=== PATIENT | female | born 1975 | race American Indian/Alaskan Native ===

== ENCOUNTER 2019-12-06 19:12 | Emergency (ER) | payer MEDICAID ==
--- NOTE | 2019-12-06 20:21 | Emergency Department Report ---
ED Extremity Problem HPI - General Chief complaint: Extremity Injury, Upper Stated complaint: MIDDLE FINGER OF LT HAND SWOLLEN AND PAIN Time Seen by Provider: 12/06/19 20:05 Source: patient Mode of arrival: Ambulatory Limitations: No Limitations - History of Present Illness Initial comments: Patient is a 44-year-old female presents emergency room with complaints of left middle finger pain that began 2 days ago. She states that she noticed swelling and redness yesterday. Patient states that she does bite her nails. She denies any fall or injury. She denies any numbness or weakness. She does not report any fever, chills, nausea, vomiting, diarrhea, any other symptoms. She has a past medical history of hypertension, anxiety, depression. She states that she is currently on her menstrual cycle. She has an allergy to hydrocodone. - Related Data Previous Rx's Medication Instructions Recorded Last Taken Type Amoxicillin [Trimox CAP] 500 mg PO Q8H 10 Days #30 capsule 12/11/18 Unknown Rx Chlorhexidine Mouthwash [Peridex] 15 ml MM BID #1 bottle 12/11/18 Unknown Rx traMADoL [Ultram] 50 mg PO Q6HR PRN #12 tablet 12/11/18 Unknown Rx Acetaminophen [Tylenol] 650 mg PO Q8HR PRN #20 capsule 12/06/19 Unknown Rx Sulfamethoxazole/Trimethoprim 1 each PO BID 7 Days #14 tablet 12/06/19 Unknown Rx [Bactrim DS TAB] traMADoL [Ultram 50 MG tab] 50 mg PO Q6HR PRN #7 tablet 12/06/19 Unknown Rx Allergies Allergy/AdvReac Type Severity Reaction Status Date / Time hydrocodone [From [place]] Allergy Itching Verified 12/06/19 19:19 ED Review of Systems ROS: Stated complaint: MIDDLE FINGER OF LT HAND SWOLLEN AND PAIN Other details as noted in HPI Comment: All other systems reviewed and negative ED Past Medical Hx - Past Medical History Previous Medical History?: Yes Hx Hypertension: Yes Additional medical history: anxiety - Surgical History Past Surgical History?: Yes Additional Surgical History: Tonsil. 1/2 Thyroid removed. - Social History Smoking Status: Current Some Day Smoker Substance Use Type: Alcohol - Medications Home Medications: Home Medications Medication Instructions Recorded Confirmed Last Taken Type Amoxicillin [Trimox CAP] 500 mg PO Q8H 10 Days #30 capsule 12/11/18 Unknown Rx Chlorhexidine Mouthwash [Peridex] 15 ml MM BID #1 bottle 12/11/18 Unknown Rx traMADoL [Ultram] 50 mg PO Q6HR PRN #12 tablet 12/11/18 Unknown Rx Acetaminophen [Tylenol] 650 mg PO Q8HR PRN #20 capsule 12/06/19 Unknown Rx Sulfamethoxazole/Trimethoprim 1 each PO BID 7 Days #14 tablet 12/06/19 Unknown Rx [Bactrim DS TAB] traMADoL [Ultram 50 MG tab] 50 mg PO Q6HR PRN #7 tablet 12/06/19 Unknown Rx ED Physical Exam - General Limitations: No Limitations General appearance: alert, in no apparent distress - Head Head exam: Present: atraumatic, normocephalic - Eye Eye exam: Present: normal appearance - ENT ENT exam: Present: mucous membranes moist - Extremities Exam Extremities exam: Present: other (small amount of induration present surrounding the left middle finger nailbed and to the pulp of the left middle finger, there is no fluctuance, there is no drainage, no drainage is able to be manually expressed, there is no visualized pus underneath the skin, she has FROM of the left hand and digits, no pain with ROM, neurovascularly intact) - Neurological Exam Neurological exam: Present: alert, oriented X3 - Psychiatric Psychiatric exam: Present: normal affect, normal mood - Skin Skin exam: Present: warm, dry ED Course Vital Signs 12/06/19 12/06/19 19:17 20:33 Temperature 99.0 F 98.7 F Pulse Rate 84 82 Respiratory 18 18 Rate Blood Pressure 111/69 Blood Pressure 119/70 [Right] O2 Sat by Pulse 95 96 Oximetry ED Medical Decision Making - Medical Decision Making Patient is a 44-year-old female presents emergency room with complaints of left middle finger pain that began 2 days ago. She states that she noticed swelling and redness yesterday. Patient states that she does bite her nails. She denies any fall or injury. She denies any numbness or weakness. She does not report any fever, chills, nausea, vomiting, diarrhea, any other symptoms. She has a past medical history of hypertension, anxiety, depression. She states that she is currently on her menstrual cycle. She has an allergy to hydrocodone. Vitals are normal. On exam: small amount of induration present surrounding the left middle finger nailbed and to the pulp of the left middle finger, there is no fluctuance, there is no drainage, no drainage is able to be manually expressed, there is no visualized pus underneath the skin, she has FROM of the left hand and digits, no pain with ROM, neurovascularly intact. Examination consistent with cellulitis, it appears to be very early paronychia, there is no drainable abscess at this time, appears to be just indurated skin at this time. Will place patient on oral antibiotics and give her pain medications. Discussed with patient that she may have to have incision and drainage procedure if the antibiotics do not resolve the infection. Discussed strict return precautions with patient in detail and that she needed to have the area reexamined in 3 days. advised pt Please take medication as prescribed. Do not drive or operate heavy machinery while taking pain medication. Please follow-up with a primary care doctor in the next 3 days for reexamination. Return to the emergency room immediately for any new or worsening symptoms including but not limited to worsening swelling, worsening redness, fever, worsening pain, etc. If antibiotics do not take care of the infection, may have to have an incision and drainage procedure performed. Critical care attestation.: If time is entered above; I have spent that time in minutes in the direct care of this critically ill patient, excluding procedure time. ED Disposition Clinical Impression: Cellulitis Qualifiers: Site of cellulitis: extremity Site of cellulitis of extremity: upper extremity Laterality: left Qualified Code(s): L03.114 - Cellulitis of left upper limb Disposition: DC-01 TO HOME OR SELFCARE Is pt being admited?: No Does the pt Need Aspirin: No Condition: Stable Instructions: Paronychia (ED), Cellulitis (ED) Additional Instructions: Please take medication as prescribed. Do not drive or operate heavy machinery while taking pain medication. Please follow-up with a primary care doctor in the next 3 days for reexamination. Return to the emergency room immediately for any new or worsening symptoms including but not limited to worsening swelling, worsening redness, fever, worsening pain, etc. If antibiotics do not take care of the infection, may have to have an incision and drainage procedure performed. Prescriptions: Sulfamethoxazole/Trimethoprim [Bactrim DS TAB] 1 each PO BID 7 Days #14 tablet Acetaminophen [Tylenol] 650 mg PO Q8HR PRN #20 capsule PRN Reason: Pain, Moderate (4-6) traMADoL [Ultram 50 MG tab] 50 mg PO Q6HR PRN #7 tablet PRN Reason: Pain , Severe (7-10) Referrals: TRESA CUNHA MD [Primary Care Provider] - 2-3 Days Time of Disposition: 20:21 Print Language: ISRAELI
[2019-12-06 21:13] VITALS: BP 119/70
== END 2019-12-06 20:32 | disposition home or self-care (01) ==
LOC: ED 19:12
DX: L03.114 Cellulitis of left upper limb (principal); I10 Essential (primary) hypertension; F41.9 Anxiety disorder, unspecified; F17.200 Nicotine dependence, unspecified, uncomplicated; Z98.890 Other specified postprocedural states; Z88.8 Allergy status to other drugs, medicaments and biological substances; Z79.899 Other long term (current) drug therapy
CPT/HCPCS: 99282

== ENCOUNTER 2020-06-18 07:29 | Emergency (ER) | payer MEDICAID ==
[2020-06-18] MEDS ORDERED: dexAMETHasone 20 MG/5 ML VIAL IV ONE (07:58)
[2020-06-18] MEDS ORDERED: MECLIZINE 25 MG TAB PO ONE (07:58)
--- NOTE | 2020-06-18 08:00 | Emergency Department Report ---
ED General Adult HPI - General Chief complaint: Dyspnea/Respdistress Stated complaint: DIZZY/FEVER PUI?: Yes Time Seen by Provider: 06/18/20 07:33 Source: patient, EMS ( EMS documentation not available at time of chart di ctation ), RN notes reviewed Mode of arrival: Stretcher Limitations: Physical Limitation - History of Present Illness Initial comments: The patient was evaluated in the emergency department for symptoms described in the history of present illness. He/she was evaluated in the context of the global COVID-19 pandemic, which necessitated consideration that the patient might be at risk for infection with the virus that causes COVID-19. Institutional protocols and algorithms that pertain to the evaluation of patients at risk for COVID-19 are in a state of rapid change based on information released by regulatory bodies including the CDC and federal and state organizations. These policies and algorithms were followed during the patient's care in the emergency department. Please note that these policies, procedures and recommendations changed on a rapid basis. During the entire history and physical examination, I had on complete personal protective equipment. This is a 45-year-old female. She is not known to myself previously. She states that she is not , and has not delivered or given within the past 6 weeks. She has a history of obesity, hypertension, high cholesterol, and anxiety. She is brought to the hospital by emergency medical services. She presents to the ER today with a complaint of painless dizziness, and inability to walk. She states that she woke up feeling like this. She states that last night, when she got home, she saw "some gummy worms on the counter", and ate them. She is not sure what is in the aforementioned gummy worms, and thinks that she may have accidentally overdosed on something unintentionally. Last night, while going to bed, she states that she had no physical pain, and felt like she was walking normally. This morning, she describes a sensation of persistent room spinning, which does not radiate anywhere, which does not have exacerbating or relieving factors. She states that she feels unsteady on her feet, and feels like she has difficulty walking. She denies headache, neck pain, chest pain, abdominal pain. She has cough and shortness of breath. She has no urinary symptoms. In the ambulance, she is reported to have had a fever. The emergency room, the patient has a low-grade temperature. The patient believes that she has been mostly self isolating. However, she goes out occasionally. Intermittent mask compliance. Also has a daughter and granddaughter at home, uncertain as to how old effectively they are socially distancing and isolating. There are no urinary symptoms. -: unknown (The patient woke up with symptoms) Severity scale (0 -10): 3 Consistency: constant Improves with: rest Worsens with: other (Dizziness worsens when the patient attempts to ambulate) - Related Data Previous Rx's Medication Instructions Recorded Last Taken Type Chlorhexidine Mouthwash [Peridex] 15 ml MM BID #1 bottle 12/11/18 Unknown Rx Acetaminophen [Tylenol] 650 mg PO Q8HR PRN #20 capsule 12/06/19 Unknown Rx Acetaminophen [Non-Aspirin Extra 500 mg PO Q6HR PRN #30 tablet 06/18/20 Unknown Rx Strength] Meclizine [Antivert] 25 mg PO TID PRN #30 tablet 06/18/20 Unknown Rx Ondansetron [Zofran Odt] 4 mg PO Q8HR PRN #20 tab.rapdis 06/18/20 Unknown Rx Allergies Allergy/AdvReac Type Severity Reaction Status Date / Time No Known Allergies Allergy Unverified 02/08/20 08:47 ED Review of Systems ROS: Stated complaint: DIZZY/FEVER Other details as noted in HPI Constitutional: fever, malaise, weakness Eyes: denies: eye pain, eye discharge, vision change ENT: congestion, other (No tinnitus. Positive vertigo.). denies: ear pain, throat pain, dental pain, hearing loss, epistaxis Respiratory: cough Cardiovascular: denies: chest pain, syncope Gastrointestinal: denies: abdominal pain, nausea, vomiting, diarrhea Genitourinary: denies: dysuria Musculoskeletal: arthralgia, myalgia Skin: denies: lesions Neurological: weakness. denies: headache Psychiatric: anxiety Hematological/Lymphatic: denies: easy bleeding ED Past Medical Hx - Past Medical History Previous Medical History?: Yes Hx Hypertension: Yes Additional medical history: anxiety / ptsd/ tendinitis - Surgical History Past Surgical History?: Yes Additional Surgical History: Tonsil. 1/2 Thyroid removed. - Social History Smoking Status: Never Smoker - Medications Home Medications: Home Medications Medication Instructions Recorded Confirmed Last Taken Type Chlorhexidine Mouthwash [Peridex] 15 ml MM BID #1 bottle 12/11/18 Unknown Rx Acetaminophen [Tylenol] 650 mg PO Q8HR PRN #20 capsule 12/06/19 Unknown Rx Acetaminophen [Non-Aspirin Extra 500 mg PO Q6HR PRN #30 tablet 06/18/20 Unknown Rx Strength] Meclizine [Antivert] 25 mg PO TID PRN #30 tablet 06/18/20 Unknown Rx Ondansetron [Zofran Odt] 4 mg PO Q8HR PRN #20 tab.rapdis 06/18/20 Unknown Rx ED Physical Exam - General Limitations: Physical Limitation General appearance: alert, anxious, in distress, obese - Head Head exam: Present: atraumatic, normocephalic - Eye Eye exam: Present: normal appearance, PERRL, EOMI. Absent: nystagmus - ENT ENT exam: Present: normal exam, normal orophraynx, mucous membranes moist, normal external ear exam, other (There is no mastoid tenderness. The helix is nontender) - Neck Neck exam: Present: normal inspection, full ROM. Absent: tenderness, meningismus - Respiratory Respiratory exam: Present: normal lung sounds bilaterally. Absent: respiratory distress, wheezes, rales, rhonchi, stridor, decreased breath sounds - Cardiovascular Cardiovascular Exam: Present: normal rhythm, tachycardia, normal heart sounds. Absent: bradycardia, systolic murmur, diastolic murmur, rubs, gallop - GI/Abdominal GI/Abdominal exam: Present: soft. Absent: distended, tenderness, guarding, rebound, rigid, pulsatile mass - Extremities Exam Extremities exam: Present: normal inspection, full ROM, other (2+ pulses noted in the bilateral upper and lower extremities. There is no palpable cord. negative Homans sign. Muscular compartments are soft. The pelvis is stable.). Absent: pedal edema, calf tenderness - Back Exam Back exam: Present: normal inspection, full ROM. Absent: tenderness, CVA tenderness (R), CVA tenderness (L), paraspinal tenderness, vertebral tenderness - Neurological Exam Neurological exam: Present: alert, other (There is 4 out of 5 strength in 4 extremities. Sensation is intact to light touch in 4 extremities. There is no facial droop. The tongue is midline. Extraocular movements are intact bilaterally. Patient able to lift right leg over her left mishra, and move superiorly and inferiorly, but is not able to move up to the knee secondary to generalized weakness. Patient able to lift left leg over right mishra, and move proximally and distally over a short distance, but again, secondary to global weakness, not able to move up to the knee. Intention tremor noted in the bilateral upper extremities. No significant past-pointing noted in the left upper extremity. Right upper extremity has IV, pulse ox, and blood pressure cuff, therefore, patient has difficulty moving it.) - Psychiatric Psychiatric exam: Present: anxious - Skin Skin exam: Present: warm, dry, intact, normal color. Absent: rash ED Course Vital Signs 06/18/20 06/18/20 06/18/20 07:41 07:45 07:53 Temperature 99.5 F Pulse Rate 109 H 109 H 109 H Respiratory 13 16 18 Rate Blood Pressure 117/80 117/88 Blood Pressure 117/88 [Right] O2 Sat by Pulse 96 93 96 Oximetry 06/18/20 06/18/20 06/18/20 08:00 08:01 08:15 Temperature Pulse Rate 101 H 106 H Respiratory 20 18 23 Rate Blood Pressure 112/68 112/68 Blood Pressure [Right] O2 Sat by Pulse 94 100 88 Oximetry 06/18/20 06/18/20 06/18/20 08:31 08:45 09:04 Temperature Pulse Rate 105 H 119 H Respiratory 15 30 H Rate Blood Pressure 112/68 112/68 112/68 Blood Pressure [Right] O2 Sat by Pulse 96 98 Oximetry 06/18/20 06/18/20 06/18/20 09:15 09:31 09:45 Temperature Pulse Rate Respiratory 27 H 20 18 Rate Blood Pressure 112/68 112/68 112/68 Blood Pressure [Right] O2 Sat by Pulse 95 95 93 Oximetry 06/18/20 06/18/20 06/18/20 10:01 10:15 10:31 Temperature Pulse Rate Respiratory 20 15 19 Rate Blood Pressure 112/68 112/68 112/68 Blood Pressure [Right] O2 Sat by Pulse 95 97 96 Oximetry 06/18/20 06/18/20 06/18/20 10:55 10:56 11:00 Temperature Pulse Rate 100 H 95 H Respiratory 14 12 19 Rate Blood Pressure 112/68 115/63 Blood Pressure [Right] O2 Sat by Pulse 96 94 Oximetry 11/14/20 11/14/20 11:15 11:31 Temperature Pulse Rate 94 H 94 H Respiratory 18 18 Rate Blood Pressure 115/63 115/63 Blood Pressure [Right] O2 Sat by Pulse 96 95 Oximetry - Reevaluation(s) Reevaluation #1: 06/18/20 08:59 Differential diagnosis, including but not limited to: COVID-19, labyrinthitis, intracranial lesion/stroke, pneumonia, urinary tract infection, deconditioning, thyroid derangement, peripheral vertigo Inadvertent toxic ingestion Assessment and plan: 45-year-old female presenting during the midst of the Covid pandemic, with a number of nonspecific symptoms, including cough, feeling off balance, fever, weakness, vertigo. Patient woke up with symptoms, and is therefore not a TPA candidate. Her examination at this time is not suggestive or consistent with a large vessel occlusion. Suspect global process, most likely viral syndrome. Check basic labs, treat symptoms, obtain x-ray of the chest, noncontrast CT scan of the brain, urinalysis, EKG, serum toxicology, and reassess. During my evaluation, patient hypoxic on room air, 91, 92%, therefore, required initiation of supplemental oxygen, and empiric steroid therapy. Maintain patient on contact precautions. We anticipate admission once initial diagnostics have resulted. Have discussed this with the patient who verbalized understanding, and who is amenable to this plan of care. 06/18/20 11:04 Reassessed. Patient feels much improved. Able to walk with a steady gait. X- ray of the chest, CT scan of the brain, objective laboratory testing fairly unremarkable. Elevated lactic acid less than 4, tachycardia improved, heart rate 105 bpm. IV fluids ordered, acetaminophen ordered. Anticipate discharge once tachycardia has resolved. Repeat NIH score is 0. Find stroke/CVA to be very unlikely, given history of cough, fever, and current Covid pandemic. Reevaluation #2: 06/18/20 11:53 Tachycardia resolved. Heart rate 95 bpm. Patient does not require supplemental oxygen at this time. She is able to walk around the emergency department, with a steady gait, and does not desaturate. GCS 15, NIH score of 0 at this time. Suitable for outpatient management. Likely diagnosis is viral infection/COVID- 19. Note toxicologic abnormalities noted on serum studies. ED Medical Decision Making - Lab Data Result diagrams: 06/18/20 08:06 06/18/20 08:06 Vital Signs 06/18/20 06/18/20 07:53 08:01 Temperature 99.5 F Pulse Rate 109 H Respiratory 18 18 Rate Blood Pressure 117/88 Blood Pressure 117/88 [Right] O2 Sat by Pulse 96 100 Oximetry Lab Results 06/18/20 06/18/20 06/18/20 Range/Units 08:06 08:06 08:06 WBC 8.4 (4.5-11.0) K/mm3 RBC 4.07 (3.65-5.03) M/mm3 Hgb 13.6 (10.1-14.3) gm/dl Hct 40.5 (30.3-42.9) % MCV 100 H (79-97) fl MCH 33 H (28-32) pg MCHC 34 (30-34) % RDW 13.9 (13.2-15.2) % Plt Count 266 (140-440) K/mm3 Lymph % (Auto) 23.6 (13.4-35.0) % [place] % (Auto) 7.9 H (0.0-7.3) % Eos % (Auto) 2.0 (0.0-4.3) % Baso % (Auto) 0.7 (0.0-1.8) % Lymph # (Auto) 2.0 (1.2-5.4) K/mm3 [place] # (Auto) 0.7 (0.0-0.8) K/mm3 Eos # (Auto) 0.2 (0.0-0.4) K/mm3 Baso # (Auto) 0.1 (0.0-0.1) K/mm3 Seg Neutrophils % 65.8 (40.0-70.0) % Seg Neutrophils # 5.5 (1.8-7.7) K/mm3 D-Dimer 220.33 (0-234) ng/mlDDU Lactic Acid 2.80 H* (0.7-2.0) mmol/L Magnesium (1.7-2.3) mg/dL Total Creatine Kinase (30-135) units/L Plasma/Serum Alcohol (0-0.07) % 06/18/20 06/18/20 Range/Units 08:06 08:06 WBC (4.5-11.0) K/mm3 RBC (3.65-5.03) M/mm3 Hgb (10.1-14.3) gm/dl Hct (30.3-42.9) % MCV (79-97) fl MCH (28-32) pg MCHC (30-34) % RDW (13.2-15.2) % Plt Count (140-440) K/mm3 Lymph % (Auto) (13.4-35.0) % [place] % (Auto) (0.0-7.3) % Eos % (Auto) (0.0-4.3) % Baso % (Auto) (0.0-1.8) % Lymph # (Auto) (1.2-5.4) K/mm3 [place] # (Auto) (0.0-0.8) K/mm3 Eos # (Auto) (0.0-0.4) K/mm3 Baso # (Auto) (0.0-0.1) K/mm3 Seg Neutrophils % (40.0-70.0) % Seg Neutrophils # (1.8-7.7) K/mm3 D-Dimer (0-234) ng/mlDDU Lactic Acid (0.7-2.0) mmol/L Magnesium 2.40 H (1.7-2.3) mg/dL Total Creatine Kinase 105 (30-135) units/L Plasma/Serum Alcohol < 0.01 (0-0.07) % - EKG Data -: EKG Interpreted by Vt EKG shows normal: sinus rhythm Rate: tachycardia - EKG Data When compared to previous EKG there are: previous EKG unavailable 06/18/20 09:02 Sinus rhythm, tachycardia, 105 bpm, normal axis, QTC is prolonged, poor R wave progression, and motion artifact. This EKG is abnormal. This EKG is not a [facility]. There is no prior for comparison. - Radiology Data Radiology results: pending, report reviewed, image reviewed XR chest 1V ap INDICATION / CLINICAL INFORMATION: coufg fever covoid symotoms COMPARISON: None available. FINDINGS: SUPPORT DEVICES: None. HEART / MEDIASTINUM: No significant abnormality. LUNGS / PLEURA: Lungs are clear. Costophrenic sulci are sharp. No pneumothorax. ADDITIONAL FINDINGS: No significant additional findings. IMPRESSION: 1. No acute findings. Signer Name: Felix Garza MD Signed: 06/18/2020 9:18 AM Workstation Name: [id number] CT head/brain wo con INDICATION: Dizziness. TECHNIQUE: Routine CT head. All CT scans at this location are performed using CT dose reduction for ALARA by means of automated exposure control. COMPARISON: None. FINDINGS: Intracranial: Maurer-white matter differentiation is maintained. No intracranial hemorrhage. No extra axial collection.. No hydrocephalus. No herniation. Sinuses: Paranasal sinuses and mastoid air cells are essentially clear. Orbits: Globes are intact. Calvarium: No acute fracture. IMPRESSION: 1. No acute intracranial abnormality. Signer Name: Felix Garza MD Signed: 06/18/2020 8:14 AM Workstation Name: [id number] Critical care attestation.: If time is entered above; I have spent that time in minutes in the direct care of this critically ill patient, excluding procedure time. ED Disposition Clinical Impression: Suspected 2019 novel coronavirus infection, Dizzy Disposition: DC- TO HOME OR SELFCARE Is pt being admited?: No Does the pt Need Aspirin: No Condition: Stable Instructions: COVID-19 Additional Instructions: As we discussed, the patient most likely has novel coronavirus/COVID. the symptoms of COVID will typically persist 10 to 14 days. There is no cure at this time for COVID. Please make certain to self isolate and self quarantine, follow-up with an outpatient primary care doctor within the next 3 to 5 days, wash hands with soap and water frequently, thoroughly and often, patient may take the prescribed medications as needed and directed. Advance diet and drink plenty of fluids as tolerated. Avoid interactions with the very elderly, very young, and those with chronic medical conditions. Return to the emergency room right away with new pain, worsening pain, migration of pain, projectile vomiting, change in mental status, confusion, inability to tolerate liquid feeds, new, worsened or different symptoms not present on the initial emergency room evaluation. Referrals: [facility] [Other] - 3-5 Days SHERYL WATERMAN MD [Staff Physician] - 3-5 Days Forms: Work/School Release Form(ED) - Assessment Assessment Interval: Baseline - Level of Consciousness 1a. Level of Consciousness: alert/keenly responsive - LOC Questions 1b. LOC Questions: answers both correctly - LOC Command 1c. LOC Commands: performs tasks correctly - Best Gaze 2. Best Gaze: normal - Visual 3. Visual: no visual loss - Facial Palsy 4. Facial Palsy: normal symmetrical movement - Motor Arm 5a. Motor Arm Left: drift 5b. Motor Arm Right: drift - Motor Leg 6a. Motor Leg Left: drift 6b. Motor Leg Right: drift - Limb Ataxia 7. Limb Ataxia: absent - Sensory 8. Sensory: normal - Best Language 9. Best Language: no aphasia - Dysarthria 10. Dysarthria: normal - Extinction and Inattention 11. Extinction/Inattention: no abnormality - Scoring Total Score: 4 Stroke Severity: Minor Stroke
[2020-06-18 08:39] LABS: Basophils # (Auto) 0.1 K/mm3 (0.0-0.1); Basophils % (Auto) 0.7 % (0.0-1.8); Eosinophils # (Auto) 0.2 K/mm3 (0.0-0.4); Hematocrit 40.5 % (30.3-42.9); Hemoglobin 13.6 gm/dl (10.1-14.3); Lymphocytes % (Auto) 23.6 % (13.4-35.0); Mean Corpuscular HGB Conc 34 % (30-34); Mean Corpuscular Volume 100 fl (79-97); Monocytes # (Auto) 0.7 K/mm3 (0.0-0.8); Monocytes % (Auto) 7.9 % (0.0-7.3); Platelet Count 266 K/mm3 (140-440); Red Blood Count 4.07 M/mm3 (3.65-5.03); Red Cell Distribution Width 13.9 % (13.2-15.2)
[2020-06-18 09:04] LABS: C-Reactive Protein 0.3 mg/dL (0.00-1.30)
[2020-06-18 09:05] LABS: Albumin 4.1 g/dL (3.9-5); BUN/Creatinine Ratio 16; Blood Urea Nitrogen 16 mg/dL (7-17); Calcium 9.5 mg/dL (8.4-10.2); Hemolysis Index 14
[2020-06-18 09:06] LABS: Alanine Aminotransferase < 5 units/L (7-56)
--- NOTE | 2020-06-18 09:18 | Cat Scan Report ---
CT head/brain wo con INDICATION: Dizziness. TECHNIQUE: Routine CT head. All CT scans at this location are performed using CT dose reduction for A LEONORA by means of automated exposure control. COMPARISON: None. FINDINGS: Intracranial: Maurer-white matter differentiation is maintained. No intracranial hemorrhage. No extra a xial collection.. No hydrocephalus. No herniation. Sinuses: Paranasal sinuses and mastoid air cells are essentially clear. Orbits: Globes are intact. Calvarium: No acute fracture. IMPRESSION: 1. No acute intracranial abnormality. Signer Name: Felix Garza MD Signed: 06/18/2020 9:14 AM Workstation Name: [id number]
[2020-06-18 09:24] LABS: HCG,Quantitative 0.584 mIU/mL (0-4)
[2020-06-18 09:38] LABS: Bilirubin,Urine NEG (Negative); Blood,Urine NEG (Negative); Color,Urine Yellow (Yellow); Mucus,Urine FEW /HPF; Protein,Urine <15 mg/dL mg/dL (Negative); Urobilinogen,Urine < 2.0 mg/dL (<2.0)
[2020-06-18] MEDS ORDERED: ACETAMINOPHEN 500 MG TAB PO ONE (09:44)
--- NOTE | 2020-06-18 10:23 | XRay Report ---
XR chest 1V ap INDICATION / CLINICAL INFORMATION: coufg fever covoid symotoms COMPARISON: None available. FINDINGS: SUPPORT DEVICES: None. HEART / MEDIASTINUM: No significant abnormality. LUNGS / PLEURA: Lungs are clear. Costophrenic sulci are sharp. No pneumothorax. ADDITIONAL FINDINGS: No significant additional findings. IMPRESSION: 1. No acute findings. Signer Name: Felix Garza MD Signed: 06/18/2020 10:18 AM Workstation Name: [id number]
[2020-06-18] MEDS ORDERED: KETOROLAC 30 MG/1 ML INJ IV ONE (10:49)
[2020-06-18] MEDS ORDERED: SODIUM CHLORIDE 0.9% 1000 ML 1,000 ML IV ONE (10:49)
[2020-06-18 11:16] VITALS: BP 115/63
== END 2020-06-18 12:26 | disposition home or self-care (01) ==
LOC: ED 07:29
DX: R42 Dizziness and giddiness (principal); R05 Cough; Z20.828 Contact with and (suspected) exposure to other viral communicable diseases; I10 Essential (primary) hypertension; F43.11 Post-traumatic stress disorder, acute; Z90.79 Acquired absence of other genital organ(s); Z79.899 Other long term (current) drug therapy
CPT/HCPCS: 36415; 70450; 71045; 80053; 81001; 82140; 82550; 82728; 82947; 83615; 83735; 84145; 84443; 84484; 84702; 85025; 85379; 86140; 87086; 93005; 96361; 96374; 96375; 99285; J1100; J1885; J7030; 80320; G0480

== ENCOUNTER 2020-08-24 09:52 | Emergency (ER) | payer MEDICAID ==
[2020-08-24] MEDS ORDERED: ACETAMINOPHEN 325 MG TAB ONE (09:59)
[2020-08-24 10:00] VITALS: BP 139/89
[2020-08-24] MEDS ORDERED: ACETAMINOPHEN 325 MG TAB PO ONE (10:01)
--- NOTE | 2020-08-24 10:01 | Event Note ---
ED Screening Note ED Screening Note: cough fever sob and cp pmh htn obese asthma This initial assessment/diagnostic orders/clinical plan/treatment(s) is/are subject to change based on patients health status, clinical progression and re- assessment by fellow clinical providers in the ED. Further treatment and workup at subsequent clinical providers discretion. Patient/guardian urged not to elope from the ED as their condition may be serious if not clinically assessed and managed. Initial orders include: amandeep joaquin
[2020-08-24 10:26] LABS: Basophils # (Auto) 0.1 K/mm3 (0.0-0.1); Basophils % (Auto) 0.7 % (0.0-1.8); Eosinophils % (Auto) 0.2 % (0.0-4.3); Hematocrit 39.4 % (30.3-42.9); Hemoglobin 13.5 gm/dl (10.1-14.3); Lymphocytes % (Auto) 13.1 % (13.4-35.0); Mean Corpuscular HGB Conc 34 % (30-34); Mean Corpuscular Volume 98 fl (79-97); Monocytes # (Auto) 0.6 K/mm3 (0.0-0.8); Monocytes % (Auto) 7.3 % (0.0-7.3); Platelet Count 202 K/mm3 (140-440); Red Blood Count 4.02 M/mm3 (3.65-5.03); Red Cell Distribution Width 13.6 % (13.2-15.2)
[2020-08-24 10:48] LABS: Alanine Aminotransferase 33 units/L (7-56); Albumin 4.1 g/dL (3.9-5); BUN/Creatinine Ratio 8; Blood Urea Nitrogen 7 mg/dL (7-17); Calcium 8.4 mg/dL (8.4-10.2); Hemolysis Index 2
[2020-08-24] MEDS ORDERED: POTASSIUM CHLORIDE ER 20 MEQ TAB PO ONE (13:13)
--- NOTE | 2020-08-24 13:15 | Emergency Department Report ---
ED General Adult HPI - General Chief complaint: Upper Respiratory Infection Stated complaint: COLD/FLU SYMPTOMS PUI?: Yes Time Seen by Provider: 08/24/20 10:01 Source: patient, RN notes reviewed, old records reviewed Mode of arrival: Ambulatory Limitations: No Limitations - History of Present Illness Initial comments: The patient was evaluated in the emergency department for symptoms described in the history of present illness. He/she was evaluated in the context of the global COVID-19 pandemic, which necessitated consideration that the patient might be at risk for infection with the virus that causes COVID-19. Instituti onal protocols and algorithms that pertain to the evaluation of patients at risk for COVID-19 are in a state of rapid change based on information released by regulatory bodies including the CDC and federal and state organizations. These policies and algorithms were followed during the patient's care in the emergency department. Please note that these policies, procedures and recommendations changed on a rapid basis. During the entire history and physical examination, I had a complete personal protective equipment. Patient is a 45-year-old female. She has a history of obesity. She states that she is not , does not take oral contraceptives, and has not delivered to giving within the past 6 weeks. She presents to the ER with a complaint of cough, chest wall pain, body aches, malaise and fatigue. Denies travel, surgery, posterior leg pain/swelling, oral contraceptive use. Chest wall pain is intermittent, increases with palpation and does not radiate to the back, arms or neck. No recent aspirin consumption. No family or personal history of DVT or pulmonary embolism that she is aware of. No loss of taste or smell. No urinary symptoms. -: Gradual, days(s) Location: chest (Anterior chest wall), back, left, right, upper extremity, lower extremity Severity scale (0 -10): 10 Quality: stabbing Consistency: intermittent Improves with: rest Worsens with: movement, other (Palpation of chest wall) - Related Data Previous Rx's Medication Instructions Recorded Last Taken Type Chlorhexidine Mouthwash [Peridex] 15 ml MM BID #1 bottle 12/11/18 Unknown Rx Acetaminophen [Tylenol] 650 mg PO Q8HR PRN #20 capsule 12/06/19 Unknown Rx Acetaminophen [Non-Aspirin Extra 500 mg PO Q6HR PRN #30 tablet 06/18/20 Unknown Rx Strength] Meclizine [Antivert] 25 mg PO TID PRN #30 tablet 06/18/20 Unknown Rx Ondansetron [Zofran Odt] 4 mg PO Q8HR PRN #20 tab.rapdis 06/18/20 Unknown Rx Acetaminophen [Non-Aspirin Extra 500 mg PO Q6HR PRN #30 tablet 08/24/20 Unknown Rx Strength] Albuterol Sulfate [Proair 90 mcg IH Q4HR PRN #2 aer.pow.ba 08/24/20 Unknown Rx Respiclick] Ibuprofen [Motrin] 600 mg PO Q8H PRN #30 tablet 08/24/20 Unknown Rx Potassium Chloride [K-Dur] 20 meq PO QDAY #14 tablet 08/24/20 Unknown Rx Allergies Allergy/AdvReac Type Severity Reaction Status Date / Time No Known Allergies Allergy Verified 08/24/20 09:55 ED Review of Systems ROS: Stated complaint: COLD/FLU SYMPTOMS Other details as noted in HPI Constitutional: chills, fever, malaise, weakness Eyes: denies: vision change ENT: congestion Respiratory: cough Cardiovascular: chest pain (Chest wall pain) Gastrointestinal: denies: nausea, vomiting, diarrhea Genitourinary: denies: dysuria Musculoskeletal: back pain, arthralgia, myalgia Neurological: weakness Hematological/Lymphatic: denies: easy bleeding ED Past Medical Hx - Past Medical History Hx Hypertension: Yes Additional medical history: anxiety / ptsd/ tendinitis - Surgical History Additional Surgical History: Tonsil. 1/2 Thyroid removed. - Social History Smoking Status: Current Some Day Smoker Substance Use Type: None - Medications Home Medications: Home Medications Medication Instructions Recorded Confirmed Last Taken Type Chlorhexidine Mouthwash [Peridex] 15 ml MM BID #1 bottle 12/11/18 Unknown Rx Acetaminophen [Tylenol] 650 mg PO Q8HR PRN #20 capsule 12/06/19 Unknown Rx Acetaminophen [Non-Aspirin Extra 500 mg PO Q6HR PRN #30 tablet 06/18/20 Unknown Rx Strength] Meclizine [Antivert] 25 mg PO TID PRN #30 tablet 06/18/20 Unknown Rx Ondansetron [Zofran Odt] 4 mg PO Q8HR PRN #20 tab.rapdis 06/18/20 Unknown Rx Acetaminophen [Non-Aspirin Extra 500 mg PO Q6HR PRN #30 tablet 08/24/20 Unknown Rx Strength] Albuterol Sulfate [Proair 90 mcg IH Q4HR PRN #2 aer.pow.ba 08/24/20 Unknown Rx Respiclick] Ibuprofen [Motrin] 600 mg PO Q8H PRN #30 tablet 08/24/20 Unknown Rx Potassium Chloride [K-Dur] 20 meq PO QDAY #14 tablet 08/24/20 Unknown Rx ED Physical Exam - General Limitations: No Limitations General appearance: alert, obese - Head Head exam: Present: atraumatic, normocephalic - Eye Eye exam: Present: normal appearance, EOMI. Absent: nystagmus - ENT ENT exam: Present: normal exam, normal orophraynx, mucous membranes moist, normal external ear exam - Neck Neck exam: Present: normal inspection, full ROM. Absent: tenderness, meningismus - Respiratory Respiratory exam: Present: normal lung sounds bilaterally, chest wall tenderness. Absent: respiratory distress, wheezes, rales, rhonchi, stridor - Cardiovascular Cardiovascular Exam: Present: normal rhythm, tachycardia, normal heart sounds. Absent: bradycardia, irregular rhythm, systolic murmur, diastolic murmur, rubs, gallop - GI/Abdominal GI/Abdominal exam: Present: soft. Absent: distended, tenderness, guarding, rebound, rigid, pulsatile mass - Extremities Exam Extremities exam: Present: normal inspection, full ROM, other (2+ pulses noted in the bilateral upper and lower extremities. There is no palpable cord. negative Homans sign. Muscular compartments are soft. The pelvis is stable.). Absent: pedal edema, calf tenderness - Back Exam Back exam: Present: normal inspection, full ROM. Absent: tenderness, CVA tenderness (R), CVA tenderness (L), paraspinal tenderness, vertebral tenderness - Neurological Exam Neurological exam: Present: alert, oriented X3, normal gait, other (No facial droop. Tongue midline. Extraocular movements intact bilaterally. Facial sensation intact to light touch in V1, V2, V3 distribution bilaterally. 5 and a 5 strength in 4 extremities. Sensation intact to light touch in 4 extremities.). Absent: motor sensory deficit - Psychiatric Psychiatric exam: Present: normal affect, normal mood - Skin Skin exam: Present: warm, dry, intact, normal color. Absent: rash ED Course Vital Signs 08/24/20 08/24/20 09:58 14:25 Temperature 102.3 F H Pulse Rate 111 H Respiratory 18 18 Rate Blood Pressure 139/89 O2 Sat by Pulse 94 100 Oximetry ED Medical Decision Making - Lab Data Result diagrams: 08/24/20 10:12 08/24/20 10:12 Vital Signs 08/24/20 08/24/20 09:58 14:25 Temperature 102.3 F H Pulse Rate 111 H Respiratory 18 18 Rate Blood Pressure 139/89 O2 Sat by Pulse 94 100 Oximetry Lab Results 08/24/20 08/24/20 08/24/20 Range/Units 10:12 10:12 10:12 WBC 7.9 (4.5-11.0) K/mm3 RBC 4.02 (3.65-5.03) M/mm3 Hgb 13.5 (10.1-14.3) gm/dl Hct 39.4 (30.3-42.9) % MCV 98 H (79-97) fl MCH 34 H (28-32) pg MCHC 34 (30-34) % RDW 13.6 (13.2-15.2) % Plt Count 202 (140-440) K/mm3 Lymph % (Auto) 13.1 L (13.4-35.0) % Hill % (Auto) 7.3 (0.0-7.3) % Eos % (Auto) 0.2 (0.0-4.3) % Baso % (Auto) 0.7 (0.0-1.8) % Lymph # (Auto) 1.0 L (1.2-5.4) K/mm3 Hill # (Auto) 0.6 (0.0-0.8) K/mm3 Eos # (Auto) 0.0 (0.0-0.4) K/mm3 Baso # (Auto) 0.1 (0.0-0.1) K/mm3 Seg Neutrophils % 78.7 H (40.0-70.0) % Seg Neutrophils # 6.2 (1.8-7.7) K/mm3 D-Dimer 275.27 H (0-234) ng/mlDDU Sodium 135 L (137-145) mmol/L Potassium 3.3 L (3.6-5.0) mmol/L Chloride 99.0 (98-107) mmol/L Carbon Dioxide 25 (22-30) mmol/L Anion Gap 14 mmol/L BUN 7 (7-17) mg/dL Creatinine 0.9 (0.6-1.2) mg/dL Estimated GFR > 60 ml/min BUN/Creatinine Ratio 8 % Glucose 115 H (65-100) mg/dL Lactic Acid (0.7-2.0) mmol/L Calcium 8.4 (8.4-10.2) mg/dL Ferritin (10.0-200.0) ng/mL Total Bilirubin 0.50 (0.1-1.2) mg/dL AST 23 (5-40) units/L ALT 33 (7-56) units/L Alkaline Phosphatase 57 (35-129) units/L Lactate Dehydrogenase 183 H (91-180) units/L Total Creatine Kinase (30-135) units/L Troponin T (0.00-0.029) ng/mL C-Reactive Protein 10.60 H (0.00-1.30) mg/dL Total Protein 7.1 (6.3-8.2) g/dL Albumin 4.1 (3.9-5) g/dL Albumin/Globulin Ratio 1.4 % Procalcitonin (<0.15) ng/mL 08/24/20 08/24/20 08/24/20 Range/Units 10:12 10:12 10:12 WBC (4.5-11.0) K/mm3 RBC (3.65-5.03) M/mm3 Hgb (10.1-14.3) gm/dl Hct (30.3-42.9) % MCV (79-97) fl MCH (28-32) pg MCHC (30-34) % RDW (13.2-15.2) % Plt Count (140-440) K/mm3 Lymph % (Auto) (13.4-35.0) % Hill % (Auto) (0.0-7.3) % Eos % (Auto) (0.0-4.3) % Baso % (Auto) (0.0-1.8) % Lymph # (Auto) (1.2-5.4) K/mm3 Hill # (Auto) (0.0-0.8) K/mm3 Eos # (Auto) (0.0-0.4) K/mm3 Baso # (Auto) (0.0-0.1) K/mm3 Seg Neutrophils % (40.0-70.0) % Seg Neutrophils # (1.8-7.7) K/mm3 D-Dimer (0-234) ng/mlDDU Sodium (137-145) mmol/L Potassium (3.6-5.0) mmol/L Chloride (98-107) mmol/L Carbon Dioxide (22-30) mmol/L Anion Gap mmol/L BUN (7-17) mg/dL Creatinine (0.6-1.2) mg/dL Estimated GFR ml/min BUN/Creatinine Ratio % Glucose (65-100) mg/dL Lactic Acid (0.7-2.0) mmol/L Calcium (8.4-10.2) mg/dL Ferritin 188.1 (10.0-200.0) ng/mL Total Bilirubin (0.1-1.2) mg/dL AST (5-40) units/L ALT (7-56) units/L Alkaline Phosphatase (35-129) units/L Lactate Dehydrogenase (91-180) units/L Total Creatine Kinase (30-135) units/L Troponin T < 0.010 (0.00-0.029) ng/mL C-Reactive Protein (0.00-1.30) mg/dL Total Protein (6.3-8.2) g/dL Albumin (3.9-5) g/dL Albumin/Globulin Ratio % Procalcitonin 0.08 (<0.15) ng/mL 08/24/20 08/24/20 Range/Units 10:12 13:27 WBC (4.5-11.0) K/mm3 RBC (3.65-5.03) M/mm3 Hgb (10.1-14.3) gm/dl Hct (30.3-42.9) % MCV (79-97) fl MCH (28-32) pg MCHC (30-34) % RDW (13.2-15.2) % Plt Count (140-440) K/mm3 Lymph % (Auto) (13.4-35.0) % Hill % (Auto) (0.0-7.3) % Eos % (Auto) (0.0-4.3) % Baso % (Auto) (0.0-1.8) % Lymph # (Auto) (1.2-5.4) K/mm3 Hill # (Auto) (0.0-0.8) K/mm3 Eos # (Auto) (0.0-0.4) K/mm3 Baso # (Auto) (0.0-0.1) K/mm3 Seg Neutrophils % (40.0-70.0) % Seg Neutrophils # (1.8-7.7) K/mm3 D-Dimer (0-234) ng/mlDDU Sodium (137-145) mmol/L Potassium (3.6-5.0) mmol/L Chloride (98-107) mmol/L Carbon Dioxide (22-30) mmol/L Anion Gap mmol/L BUN (7-17) mg/dL Creatinine (0.6-1.2) mg/dL Estimated GFR ml/min BUN/Creatinine Ratio % Glucose (65-100) mg/dL Lactic Acid 1.70 (0.7-2.0) mmol/L Calcium (8.4-10.2) mg/dL Ferritin (10.0-200.0) ng/mL Total Bilirubin (0.1-1.2) mg/dL AST (5-40) units/L ALT (7-56) units/L Alkaline Phosphatase (35-129) units/L Lactate Dehydrogenase (91-180) units/L Total Creatine Kinase 111 (30-135) units/L Troponin T (0.00-0.029) ng/mL C-Reactive Protein (0.00-1.30) mg/dL Total Protein (6.3-8.2) g/dL Albumin (3.9-5) g/dL Albumin/Globulin Ratio % Procalcitonin (<0.15) ng/mL - EKG Data -: EKG Interpreted by Sd EKG shows normal: sinus rhythm Rate: tachycardia - EKG Data Interpretation: unchanged when compared t (June 2020) 08/24/20 15:26 Sinus rhythm, tachycardia, 104 bpm, normal axis, QTC 520 ms, motion artifact, borderline high left ventricular voltage, abnormal EKG, not a STEMI. - Radiology Data Radiology results: pending, report reviewed, image reviewed CHEST 1 VIEW INDICATION: flu covid symptoms. COMPARISON: 06/18/2020 FINDINGS: Support devices: None. Heart: Within normal limits. Lungs/Pleura: No acute air space or interstitial disease. Additional findings: None. IMPRESSION: No acute findings. Signer Name: Marcelino Genesis Olivares Jr, MD Signed: 08/24/2020 12:56 PM - Medical Decision Making Differential diagnosis, including but not limited to: Influenza-like illness, influenza, COVID-19, viral syndrome Assessment and plan: 45-year-old female, presenting with fever, tachycardia, nonspecific constitutional symptoms On trial of ambulation, saturating at 92 to 98% on room air. At rest, saturating 100% on room air, heart rate currently 95 bpm. Do not suspect urinary tract infection as the patient has no CVA tenderness or urinary symptoms. Suspect influenza-like illness versus COVID-19. Given the aforementioned, patient suitable for trial of outpatient management. Laboratory studies, including blood cultures were sent prior to my personal evaluation. Do not suspect invasive bacteremic illness at this time. Given negative troponin, unremarkable CK, myocarditis, pericarditis very unlikely. Pain present in the chest wall for about 48 hours. It is rep roducible, her EKG is essentially unchanged from prior, patient at low risk for major adverse cardiac event as per heart score. I do not suspect a pulmonary embolism, as the patient's D-dimer is only minimally elevated, I personally would not have ordered a D-dimer, it was ordered by the nurse practitioner in triage as part of the screening process, to risk stratify patient for cytokine storm. Patient is suitable for trial of outpatient management at this time. We discussed return precautions. We also discussed recommendation to purchase a pulse oximeter [id number] so patient may monitor herself at home. She states she is reliable for follow-up. Also discussed the possibility of influenza-like illness. Discussed Tamiflu, and side effects, such as nausea, vomiting, diarrhea and abdominal cramping. Patient states that she is not interested in Tamiflu. She is amenable to supp ortive care. Therefore, through shared decision-making, especially as I do not feel patient would benefit from Tamiflu therapy, will discharge with instructions for supportive care Critical care attestation.: If time is entered above; I have spent that time in minutes in the direct care of this critically ill patient, excluding procedure time. ED Disposition Clinical Impression: Suspected 2019 novel coronavirus infection, Influenza-like illness, Hypokalemia, Chest wall pain Disposition: DC-01 TO HOME OR SELFCARE Is pt being admited?: No Does the pt Need Aspirin: No Condition: Stable Instructions: COVID-19, Influenza, Adult, [id number], Chest Pain (ED) Additional Instructions: As we discussed, the patient most likely has novel coronavirus/COVID. the symptoms of COVID will typically persist 10 to 14 days. There is no cure at this time for COVID. Please make certain to self isolate and self quarantine, follow-up with an outpatient primary care doctor within the next 3 to 5 days, wash hands with soap and water frequently, thoroughly and often, patient may t joya the prescribed medications as needed and directed. Advance diet and drink plenty of fluids as tolerated. Avoid interactions with the very elderly, very young, and those with chronic medical conditions. Return to the emergency room right away with new pain, worsening pain, migration of pain, projectile vomiting, change in mental status, confusion, inability to tolerate liquid feeds, new, worsened or different symptoms not present on the initial emergency room evaluation. Cultures were sent today, and results will be available in the next 3 to 5 days. Please have a primary care doctor contact the medical records department to obtain culture results. Referrals: TRESA CUNHA MD [Primary Care Provider] - 3-5 Days Forms: Work/School Release Form(ED)
--- NOTE | 2020-08-24 14:00 | XRay Report ---
CHEST 1 VIEW INDICATION: flu covid symptoms. COMPARISON: 06/18/2020 FINDINGS: Support devices: None. Heart: Within normal limits. Lungs/Pleura: No acute air space or interstitial disease. Additional findings: None. IMPRESSION: No acute findings. Signer Name: Marcelino Olivares Jr, MD Signed: 08/24/2020 1:56 PM Workstation Name: [id number]
== END 2020-08-24 15:52 | disposition home or self-care (01) ==
LOC: ED 09:52
DX: E87.6 Hypokalemia (principal); J11.1 Influenza due to unidentified influenza virus with other respiratory manifestations; R07.89 Other chest pain; I10 Essential (primary) hypertension; F41.9 Anxiety disorder, unspecified; F17.200 Nicotine dependence, unspecified, uncomplicated; E66.9 Obesity, unspecified; Z98.890 Other specified postprocedural states; Z20.828 Contact with and (suspected) exposure to other viral communicable diseases; Z79.899 Other long term (current) drug therapy; Z68.37 Body mass index [BMI] 37.0-37.9, adult
CPT/HCPCS: 36415; 71045; 80053; 82140; 82550; 82728; 83615; 84145; 84484; 85025; 85379; 86140; 87040; 93005

== ENCOUNTER 2021-11-11 05:53 | Emergency (ER) | payer MEDICAID ==
[2021-11-11] MEDS ORDERED: ONDANSETRON 4 MG/2 ML INJ IV ONE (06:27)
[2021-11-11] MEDS ORDERED: SODIUM CHLORIDE 0.9% 1000 ML 1,000 ML IV ONE (06:27)
[2021-11-11] MEDS ORDERED: MECLIZINE 25 MG TAB PO ONE ×2 (06:27→09:33)
--- NOTE | 2021-11-11 06:33 | Emergency Department Report ---
HPI - General Chief Complaint: Dizziness Time Seen by Provider: 11/11/21 06:27 - HPI HPI: Since last night the patient has been experiencing vertigo. This is happened to her about 7 years ago but not since. Last night she had several beers and then began experiencing vertigo with a couple episodes of clear emesis. The patient denies fever chills focal weakness headache or any other associated symptoms. The vertigo is moderate and made worse by turning her head and better by staying still. ED Past Medical Hx - Past Medical History Hx Hypertension: Yes Additional medical history: anxiety / ptsd/ tendinitis - Surgical History Additional Surgical History: Tonsil. /2 Thyroid removed. - Social History Smoking Status: Current Some Day Smoker Substance Use Type: None - Medications Home Medications: Home Medications Medication Instructions Recorded Confirmed Last Taken Type Chlorhexidine Mouthwash [Peridex] 15 ml MM BID #1 bottle 12/11/18 Unknown Rx Acetaminophen [Tylenol] 650 mg PO Q8HR PRN #20 capsule 12/06/19 Unknown Rx Acetaminophen [Non-Aspirin Extra 500 mg PO Q6HR PRN #30 tablet 06/18/20 Unknown Rx Strength] Meclizine [Antivert] 25 mg PO TID PRN #30 tablet 06/18/20 Unknown Rx Ondansetron [Zofran Odt] 4 mg PO Q8HR PRN #20 tab.rapdis 06/18/20 Unknown Rx Acetaminophen [Non-Aspirin Extra 500 mg PO Q6HR PRN #30 tablet 08/24/20 Unknown Rx Strength] Albuterol Sulfate [Proair 90 mcg IH Q4HR PRN #2 aer.pow.ba 08/24/20 Unknown Rx Respiclick] Ibuprofen [Motrin] 600 mg PO Q8H PRN #30 tablet 08/24/20 Unknown Rx Potassium Chloride [K-Dur] 20 meq PO QDAY #14 tablet 08/24/20 Unknown Rx Meclizine [Antivert] 25 mg PO TID PRN #20 11/11/21 Unknown Rx Ondansetron [Zofran Odt] 4 mg PO Q6HR PRN #12 tab.rapdis 11/11/21 Unknown Rx ED Review of Systems ROS: Stated complaint: NAUSEA Other details as noted in HPI Comment: All other systems reviewed and negative Physical Exam - Physical Exam Vital Signs: Reviewed as charted by nursing Physical Exam: Physical Exam Constitutional: General: No acute distress. Appearance: No diaphoresis. HENT: Head: Normocephalic. Eyes: Pupils: Pupils are equal, round, and reactive to light. Neck: Musculoskeletal: Normal range of motion. Cardiovascular: Rate and Rhythm: Normal rate and regular rhythm. Pulses: Intact distal pulses. Heart sounds: Normal heart sounds. No murmur. Pulmonary: Effort: No respiratory distress. Breath sounds: No wheezing or rales. Chest: Chest wall: No tenderness. Abdominal: General: There is no distension. Palpations: There is no mass. Tenderness: There is no abdominal tenderness. There is no guarding or rebound. Musculoskeletal: Normal range of motion. Skin: General: Skin is warm and dry. Neurological: Mental Status: Alert and oriented to person, place, and time. The patient had an abnormal head impulse test with no direction changing nystagmus and no vertical strabismus nor malalignment. Psychiatric: Mood and Affect: Mood and affect normal. Cognition and Memory: Memory normal. Judgment: Judgment normal. ED Course - Reevaluation(s) Reevaluation #1: 11/11/21 09:07 Patient felt better after the medicines that we gave her. She likely has acute benign vertigo she has had this before. I will put her on meclizine and antiemetics and she will return if any other issues arise otherwise follow-up with her PCP. ED Medical Decision Making - Lab Data Result diagrams: 11/11/21 07:15 11/11/21 07:15 Critical care attestation.: If time is entered above; I have spent that time in minutes in the direct care of this critically ill patient, excluding procedure time. ED Disposition Clinical Impression: Vertigo Disposition: 01 HOME / SELF CARE / HOMELESS Is pt being admited?: No Does the pt Need Aspirin: No Condition: Stable Instructions: Dizziness, [id number] Prescriptions: Meclizine [Antivert] 25 mg PO TID PRN #20 PRN Reason: Vertigo Ondansetron [Zofran Odt] 4 mg PO Q6HR PRN #12 tab.rapdis PRN Reason: Nausea Referrals: SHERYL WATERMAN MD [Primary Care Provider] - 3-5 Days Print Language: BELARUSIAN
[2021-11-11 07:30] LABS: Basophils % (Auto) 0.4 % (0.0-1.8); Eosinophils % (Auto) 0.3 % (0.0-4.3); Hematocrit 41.5 % (30.3-42.9); Hemoglobin 13.4 gm/dl (10.1-14.3); Lymphocytes # (Auto) 1.8 K/mm3 (1.2-5.4); Lymphocytes % (Auto) 20.3 % (13.4-35.0); Mean Corpuscular HGB Conc 32 % (30-34); Mean Corpuscular Volume 94 fl (79-97); Monocytes # (Auto) 0.9 K/mm3 (0.0-0.8); Monocytes % (Auto) 10.4 % (0.0-7.3); Platelet Count 224 K/mm3 (140-440); Red Blood Count 4.42 M/mm3 (3.65-5.03); Red Cell Distribution Width 14.9 % (13.2-15.2)
[2021-11-11 07:50] LABS: Alanine Aminotransferase 17 units/L (7-56); Albumin 4.1 g/dL (3.9-5); BUN/Creatinine Ratio 12; Blood Urea Nitrogen 12 mg/dL (7-17); Calcium 9.2 mg/dL (8.4-10.2); Hemolysis Index 6
[2021-11-11] MEDS ORDERED: ONDANSETRON 4 MG/2 ML INJ ONE (08:37)
[2021-11-11 09:57] VITALS: BP 108/73
== END 2021-11-11 09:54 | disposition home or self-care (01) ==
LOC: ED 05:53
DX: R42 Dizziness and giddiness (principal); I10 Essential (primary) hypertension; F17.200 Nicotine dependence, unspecified, uncomplicated; F41.9 Anxiety disorder, unspecified
CPT/HCPCS: 36415; 80053; 85025; 96361; 96374; 99284; J2405; J7030; Q0162